=== PATIENT | female | born 1950 | race Two or more races ===

== ENCOUNTER 2021-08-12 23:15 | Emergency (ER) | payer OTHER ==
[~2021-08-12] VITALS: Ht 149.9 cm; Wt 68.0 kg
[2021-08-12] MEDS ORDERED: MONTELUKAST SODI4 M1 (23:38)
[2021-08-12] MEDS ORDERED: CHILDREN'S ASPI81 MG (23:38)
[2021-08-12] MEDS ORDERED: ATORVASTATIN CA20 MG (23:38)
[2021-08-12] MEDS ORDERED: COZAAR25 MG (23:38)
[2021-08-13] MEDS ORDERED: NAPROXEN375 MG PO (02:36)
== END 2021-08-13 03:17 | disposition home or self-care (01) ==
LOC: ER 23:15
DX: S00.83XA Contusion of other part of head, initial encounter (principal); W18.39XA Other fall on same level, initial encounter; Y93.89 Activity, other specified; Y92.091 Bathroom in other non-institutional residence as the place of occurrence of the external cause; Y99.8 Other external cause status